=== PATIENT | male | born 1990 | race Asian ===

== ENCOUNTER → 2016-05-18 | Outpatient (CLI) | payer OTHER ==
[~2016-05-18] MED LIST: COLACE 100100 MG/CAP PO; NORCO 325 MG-51 TAB PO; PERCOCET 325 MG1 TA2 PO; PYRIDIUM 100MG100 MG PO
== END ==
LOC: COL.RAD 11:53
DX: N20.0 Calculus of kidney (principal); R10.12 Left upper quadrant pain
CPT/HCPCS: A9562

== ENCOUNTER 2016-05-26 13:42 | Day surgery (SDC) | payer OTHER ==
[~2016-05-26] VITALS: Ht 175.3 cm; Wt 78.5 kg
[2016-05-26] MEDS ORDERED: PERCOCET 325 MG1 TA2 PO (14:22)
[2016-05-26 14:27] VITALS: BP 121/67; PULSE 83; TEMP 98.5
[2016-05-26 16:50] VITALS: BP 114/61; PULSE 66; TEMP 98.3
[2016-05-26] MEDS ORDERED: NORCO 325 MG-51 TAB PO (17:03)
[2016-05-26] MEDS ORDERED: PYRIDIUM 100MG100 MG PO (17:04)
[2016-05-26 17:05] VITALS: BP 124/63; PULSE 73
[2016-05-26 17:20] VITALS: BP 128/70; PULSE 75
== END 2016-05-26 17:45 | disposition home or self-care (01) ==
LOC: SDCO 13:42
DX: R10.12 Left upper quadrant pain (principal); R10.84 Generalized abdominal pain; N13.5 Crossing vessel and stricture of ureter without hydronephrosis
CPT/HCPCS: C1769; C2617; J2704; J3010; Q9967

== ENCOUNTER 2016-09-15 08:40 | Inpatient (IN) | payer OTHER ==
[2016-09-15] VITALS (11 sets, daily range): BP systolic 118–150; BP diastolic 55–73; PULSE 66–119; TEMP 98–98.4
[~2016-09-15] VITALS: Ht 175.3 cm; Wt 80.0 kg
[~2016-09-15 08:40] MED LIST changes: -COLACE 100100 MG/CAP PO
[2016-09-16 01:26] VITALS: BP 128/58; PULSE 81; TEMP 98
[2016-09-16 06:16] VITALS: BP 117/62; PULSE 85; TEMP 97.7
[2016-09-16 07:15] LABS: BASO % 0.3 % (0.0-2.0); EOS % 0.3 % (0-4.0); GRAN # 7.9 (1.4-6.5); GRAN % 71.8 % (42.2-75.2); HEMATOCRIT 37.7 % (42.0-52.0); HEMOGLOBIN 12.4 g/dl (13.5-18.0); LYMPH # 2.2 (1.2-3.4); LYMPH % 19.8 % (20.0-51.0); MEAN CELL VOLUME 91 fl (80.0-100.0); MEAN CORPUSCULAR HEMOGLOBIN 30 pg (27.0-31.0); MEAN CORPUSCULAR HGB CONC 33 g/dl (33.0-37.0); MEAN PLATELET VOLUME 9.2 fl (7.4-10.4); MONO # 0.8 (0.1-0.6); MONO % 7.4 % (1.7-9.3); PLATELET COUNT 271 K/mm3 (130-400); RED BLOOD COUNT 4.14 M/mm3 (4.20-5.60); REDCELL DISTRIBUTION WIDTH-CV 12.4 % (11.5-14.5)
[2016-09-16 07:39] LABS: CALCIUM 8.4 mg/dL (8.4-10.2); CREATININE, serum 0.74 mg/dL (0.66-1.25); POTASSIUM 3.6 mmol/L (3.4-5.0)
[2016-09-16 09:57] VITALS: BP 123/53; PULSE 74; TEMP 97.2
[2016-09-16 12:38] VITALS: BP 119/67; PULSE 60; TEMP 98.1
[2016-09-16 17:22] VITALS: BP 122/78; PULSE 65; TEMP 98
[2016-09-16 21:55] VITALS: BP 118/60; PULSE 75; TEMP 98.5
[2016-09-17 06:11] VITALS: BP 116/66; PULSE 72; TEMP 97.7
[2016-09-17 09:10] VITALS: BP 125/68; PULSE 87; TEMP 98.5
[2016-09-17] MEDS ORDERED: COLACE 100100 MG/CAP PO (12:57)
[2016-09-17] MEDS ORDERED: PYRIDIUM 100MG100 MG PO (12:57)
[2016-09-17] MEDS ORDERED: PERCOCET 325 MG1 TA2 PO (12:57)
[2016-09-17 13:38] VITALS: BP 132/68; PULSE 69; TEMP 98.3
== END 2016-09-17 15:59 | disposition home or self-care (01) | DRG 660 ==
LOC: SURG 08:40 → SDCO 08:40 → SURG 15:16 → SDCO 15:24 → SURG 09-17 15:59
PROVIDERS: Urology
PROC: 8E0W4CZ Robotic Assisted Procedure of Trunk Region, Percutaneous Endoscopic Approach (ICD-10-PCS; 2016-09-15)
PROC: 0T774DZ Dilation of Left Ureter with Intraluminal Device, Percutaneous Endoscopic Approach (ICD-10-PCS; 2016-09-15)
PROC: 0TS74ZZ Reposition Left Ureter, Percutaneous Endoscopic Approach (ICD-10-PCS; principal; 2016-09-15 11:30)
PROC: 0TB74ZX Excision of Left Ureter, Percutaneous Endoscopic Approach, Diagnostic (ICD-10-PCS; 2016-09-15 11:30)
DX: N13.1 Hydronephrosis with ureteral stricture, not elsewhere classified (principal); N28.1 Cyst of kidney, acquired
CPT/HCPCS: OP; A4315; A9284; C1769; C2617; J0690; J1170; J1644; J1885; J2175; J2270; J2405; J2704; J2710; J3010; J7120

== ENCOUNTER → 2017-01-18 | Outpatient (CLI) | payer OTHER ==
[~2017-01-18] MED LIST changes: +COLACE 100100 MG/CAP PO
== END ==
LOC: COL.RAD 09:13
DX: N13.5 Crossing vessel and stricture of ureter without hydronephrosis (principal)
CPT/HCPCS: A9562